=== PATIENT | male | born 1945 | race Caucasian/White ===

== ENCOUNTER → 2021-04-03 | Outpatient (CLI) | payer OTHER ==
[~2021-04-03] MED LIST: ALDACTONE25 MG PO; ALFUZOSIN HCL10 MG PO; CIALIS5 MG PO; COQ-10100 MG PO; COREG; CRESTOR20 MG PO; IRBESARTAN150 MG PO; LO-DOSE ASPIRIN81 M1 PO; LOTREL 2.5-101 EACH PO; LOTREL 5-20 MG1 EACH PO; NIASPAN750 MG PO; NORCO 5-325 TA1 EACH PO; NORVASC 2.5 MG2.5 M1 PO; SOTALOL 120 MG120 M1 PO; SYNJARDY 12.5-1 EAC1 PO; VASCEPA1 GM PO; VITAMIN B125000 MCG PO; VITAMIN D350 MC3 PO; XANAX 0.5 MG0.5 MG PO; ZPAK PO; tikosyn
== END ==
LOC: LAB 09:05
PROVIDERS: ATTEND Student in an Organized Health Care Education/Training Program
DX: Z01.812 Encounter for preprocedural laboratory examination (principal); Z20.822 Contact with and (suspected) exposure to COVID-19

== ENCOUNTER 2021-04-05 06:17 | Inpatient (IN) | payer OTHER ==
[~2021-04-05] VITALS: Ht 180.3 cm; Wt 108.9 kg
[2021-04-05 07:39] LABS: BASOPHILS 0.5 % (0.0-2.0); EOSINOPHILS 3.2 % (0.0-3.0); HEMATOCRIT 43.6 % (42.0-52.0); HEMOGLOBIN 14.9 gm/dL (14.0-18.0); LYMPHOCYTES 30.5 % (24.0-44.0); MCH 31.8 pg (26.0-34.0); MCHC 34.2 g/dL (28.0-37.0); MONOCYTES 8.3 % (1.0-8.0); PLATELET COUNT 172 thou/uL (150-400); POLYS 57.5 % (36.0-66.0); RBC 4.69 mil/uL (4.50-6.00); WBC 5.3 thou/uL (4.0-11.0)
[2021-04-05 07:49] LABS: CALCIUM 9.5 mg/dL (8.5-10.1); CREATININE 1.2 mg/dL (0.7-1.3); POTASSIUM 3.8 mmol/L (3.5-5.1)
[2021-04-05 07:52] LABS: APTT 29.4 Seconds (24.5-32.8); INR 1.05; PROTIME 11.4 Seconds (10.5-12.1)
[2021-04-05 07:55] LABS: ALBUMIN 3.9 g/dL (3.4-5.0); TOTAL BILIRUBIN 0.6 mg/dL (0.2-1.0); TOTAL PROTEIN 6.9 g/dL (6.4-8.2)
[2021-04-05 08:19] VITALS: BP 142/64
[2021-04-05 14:06] VITALS: BP 138/63
[2021-04-05 20:34] VITALS: BP 136/86
--- NOTE | 2021-04-06 02:05 | NUR ---
ASSUMED PT CARE AT 1900.PT WAS OBSERVED LYING ON HIS BED WITH HIS EYES CLOSED AT SHIFT CHANGE.PT REQUESTED FOR PAIN MED,HYDRODONE WAS BROUGHT TO THE PT'S ROOM BUT PT REF THE MEDICATION.PT STATED THAT HE WANTED IV PAIN MED INSTEAD.MEDICATION WAS WASTED AND THIS NURSE GOT IV MORPHINE FOR PT.ON GETTING TO THE PT'S ROOM,THIS NURSE TOLE THE PT THAT HE WILL BE GETTING MORPHINE VIA HIS IV.PT STATED THAT HE DOESN;T WANT THE MORPHINE.HE SIAD"THAT WAS NOT THE MEDICATION THAT I WAS GIVEN EARLIER" THIS NURSE EXPLAINED TO THE PT THAT THE ONLY MED THAT HE HAS REXEIVED WHILE IN THE FLOOR WAS HYDROCODONE..PT APOLOGIZED FOR THE MIX UP AND REQUESTED FOR THE HYDROCODONE.IV MED WAS WASTED AND THIS NURSE WENT IN WITH HYDROCODONE.PT STATED THAT HE CALLED HIS AND SHE EXPLAINED TO HIM THAT HE GOT NAUSEA MED VIA IV AND ORAL MED FOR PAIN.PT APOLOGIZED.SUTURES TO HIS R SIDE OF MOUTH AND FACE DRY AND INTACT.DRIED BLOOD NOTED.NEUMANN CATH IN PLACE,BLOOD TINGED URINE NOTED IN THE BAG.CALL LIGHT WITHIN REACH.
[2021-04-06 05:38] LABS: ALBUMIN 3.4 g/dL (3.4-5.0); CALCIUM 8.3 mg/dL (8.5-10.1); CREATININE 1.1 mg/dL (0.7-1.3); POTASSIUM 3.8 mmol/L (3.5-5.1); TOTAL BILIRUBIN 0.5 mg/dL (0.2-1.0); TOTAL PROTEIN 6.3 g/dL (6.4-8.2)
[2021-04-06 05:47] LABS: HEMATOCRIT 43.2 % (42.0-52.0); HEMOGLOBIN 14.6 gm/dL (14.0-18.0); MCH 31.2 pg (26.0-34.0); MCHC 33.7 g/dL (28.0-37.0); MCV 92.4 fL (80.0-100.0); RBC 4.67 mil/uL (4.50-6.00)
[2021-04-06 08:22] VITALS: BP 151/58
--- NOTE | 2021-04-06 09:19 | O ---
[facility] [place] [address] OPERATIVE REPORT Name: NOAH DESIR Room #: 440-P ADM IN M.R.#: [id number] Admission: 04/05/21 Attend Phys: Dl Moore MD Discharge: Date of : 45 Report #: [id number] THIS REPORT FOR: cc: Karina Long MD,Karina Moore,Dl Braswell MD ~ cc: Karina Long MD, Rod Eisenberg MD, Janak Evans MD, Gal Leyva, Rafaela Murphy, Colin Daigle, Bill Carter MD, Adonis Wilhelm DATE OF SERVICE: 04/05/2021 SURGEON: Dl Moore MD PREOPERATIVE DIAGNOSIS: Squamous cell carcinoma, right maxilla. POSTOPERATIVE DIAGNOSIS: Squamous cell carcinoma, right maxilla. OPERATIONS PERFORMED: 1. Right infrastructure maxillectomy. 2. AlloDerm graft 3 x 7 cm. 3. Facial nerve monitoring x 3-1/2 hours. INDICATIONS: The patient is a 75-year-old gentleman referred by his oral surgeon, Dr. Wilhelm after recent biopsy on a nonhealing ulcerative lesion of the right maxilla, revealed squamous cell carcinoma dated 03/18/2021. The patient had been referred to Dr. Wilhelm from his own dentist, Dr. Colin Daigle with a nonhealing ulcer that was irritating. The patient has undergone a preoperative evaluation including CT scan and PET/CT. There was no evidence of extension to the skull base. PET scan seemed to be confined to the maxilla on the right. There was no abnormal lymphadenopathy. In light of the above, recommendations were made for right maxillectomy with orbital sparing and margin control in the operating room. DESCRIPTION OF PROCEDURE: The patient was brought to the operating room and placed supine on the operating table. After adequate general anesthesia was achieved via endotracheal intubation, he was turned 180 degrees and placed on a Bowman headrest. Neck was extended. As a separate part of the procedure, the bewarket Nerve Integrity Monitor was applied to needle electrodes placed in the orbicularis monse and orbicularis oculi muscles of the right face with ground electrodes in the soft tissue overlying the sternum and contralateral shoulder. Electrode resistance and impedance was measured and found to be acceptable. Threshold and stimulus intensity parameters were set and the patient was monitored for the entirety of the case of approximately 3-1/2 hours in order to locate and protect the facial nerve. Once this was completed, the patient was prepped with Betadine and [address] [address] OPERATIVE REPORT Name: NOAH DESIR Room #: 440-P [place] [facility]#: [id number] Admission: 04/05/21 Attend Phys: Dl Moore MD Discharge: Date of : 45 Report #: [id number] draped in a sterile fashion. A Op-Site was placed to protect the left eye. The right eye was protected with a corneal protector with ointment. The procedure began with examination, intraoral. 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 These teeth were intact. Planned incisions were then marked taking 1.5 cm margins around the mucosa, extending out of the buccal mucosa and then the palate and back behind the maxillary tubercle and then it was chosen to remove tooth #6 as the anterior margin. The soft tissue was then planned, marking the white line on the upper lip with methylene blue. A Cano Salcedo incision was then designed and stepped on the upper lip. The procedure began with a Cano-Salcedo incision. This incision was made through skin and subcutaneous tissue. The angular artery was dissected, clamped between Ligaclips and divided. The lip was then divided in a notched fashion and both labial arteries were identified and tied with a 5-0 Vicryl. Dissection continued into the mucosa of the mouth. Using both sharp dissection and Harmonic hcetan, the soft tissue and muscle were taken down to the face of the maxilla. Using a periosteal elevator, the periosteum was then elevated up to the infraorbital rim. The infraorbital vascular bundle was identified and protected. Dissection then continued posteriorly to the zygoma and posterior maxilla. The pterygoid plates were identified and dissection was continued posteriorly until the lateral pterygoid muscles could be found. This was done for identification of the inferior maxillary artery running between the head of these 2 muscles. The artery was identified in its usual anatomic position, clamped between Ligaclips and divided. The inferior maxillary vein also was identified, clamped between Ligaclips and divided. Once the outlines were adequately identified, the soft tissue margins were taken off the patient with a separate 1-2 mm excision of mucosa as margins. Margins were taken on the buccal surface, lateral and posterior, anterior and then on the palate, posterior and medial. Once these were taken, the patient was given TXA so that the bony cuts could begin. A Harden-Jasvir was then made using chisels into the maxillary sinus. Using Kerrison, this was then elevated, so that I could directly evaluate this mucosa. There did not appear to have any gross tumor on the floor of the sinus. So, dissection was then made along this bone with the Kerrison rongeurs and then switching to a sagittal saw. The tooth #6, the canine was then removed with a standard dental technique to remove the entire tooth. This was sent as a separate specimen for decalcification. The incision in the palate and maxillary alveolus was then made with a sagittal saw going through bone and into the palate. The dissection then continued from anterior to posterior, taking the hard palate down to its posterior junction. The greater palatine artery was identified, clamped between Ligaclips and suture ligated with 4-0 Vicryl. The dissection then continued and the posterior maxillary buttress and posterior wall of the maxillary sinus was then divided with both Kerrison rongeurs and a sagittal saw, taking care to gently remove the bone in the posterior maxillary wall, so that the pterygoid space could be identified, sphenopalatine artery was [address] [address] OPERATIVE REPORT Name: NOAH DESIR Edi Room #: 440-P [place] [facility].#: [id number] Admission: 04/05/21 Attend Phys: Dl Moore MD Discharge: Date of : 45 Report #: [id number] identified, clamped between Ligaclips and divided. There were several veins of the pterygoid plexus also identified and clamped between Ligaclips. Hemostasis was also assured with the Harmonic scalpel and bipolar cautery. The maxilla was rocked until this could be freed. The soft tissue attachments posteriorly of the pterygoid muscles were then taken down and this allowed free delivery of the maxillectomy specimen. This was then examined. There did not appear to be extension into the floor of the maxillary sinus and this was delivered off the field as specimen in formalin. This allowed margins to be taken on the posterior mucosa of the maxillary sinus and the medial mucosa of the maxillary sinus as separate frozen section margins. All of these were oriented. Once this was done, hemostasis was assured. Gelfoam with 1:100,000 epinephrine was placed in the maxillary sinus, superiorly to control any bleeding. There was minimal bleeding. At this point, a 4 mm liseth bur was chosen. The remaining bone superiorly of the maxilla were then smoothed with the liseth bur circumferentially. This extended into the hard palate, which was taken down until the overlapping mucosal edges could be overlapped and then taken posteriorly. Pterygoid plates were left intact. Once complete, then Xeroform was placed into the maxillary sinus followed by cotton ball soaked in Muri-Lube. The sinus was packed for hemostasis and then this was pulled. The Xeroform folded on itself and sutured with 2-0 silk. This will be removed in 5-7 days. At this point, the patient's preoperative maxillary obturator was placed. This fit very nicely and because of no support on the right secondary to the maxillectomy, still rocked a bit. For that reason, a hole was drilled anteriorly in the prosthesis and then a 2-0 silk was used to lasso and tie around tooth #7 to hold this up in position on the contralateral right side. The obturator was secured at this point. Prior to doing this, the AlloDerm graft had been soaking, was then placed into the mouth and then sutured to the mucosal edges posteriorly and then along the buccal mucosa. The piece was a 4 x 7 AlloDerm, 1.04-2.28 mm thickness. This was then customized to the defect and sutured in place to cover the exposed surface. Once this was sutured in place, the skin flap of the Cano Salcedo was returned to anatomic position. The Cano Salcedo was then closed with interrupted 4-0 Vicryl deep dermal sutures and 5-0 nylon on skin. The mucosa in the oral cavity was closed with a 3-0 chromic. Complete closure was achieved in the opposing edges that had not been excised. At the end of the procedure, the obturator was in good position, giving support to the maxillary sinus bolster as well as laterally to the AlloDerm graft. There was minimal bleeding. The mouth was then irrigated and attention was then turned to placement of a Dobbhoff feeding tube through the left naris. This was advanced to 60 cm and then taped to the forehead. Plan will be to use this in the postoperative period. Once margins would have been cleared, the patient was then returned to anesthesia, awakened without difficulty and returned to recovery in good condition. Sponge and needle counts were normal. There were no complications and blood loss was about 100 mL. The patient will be watched [facility] [address] [address] OPERATIVE REPORT Name: KARLEENOAH Edi Room #: [address] [place] [address] [place] M.R.#: [id number] Admission: 04/05/21 Attend Phys: Dl Moore MD Discharge: Date of : 45 Report #: [id number] until awake and stable. Presuming he does well, discharge to home with plans to follow up with me in 2 weeks. Written and verbal discharge instructions and emergency precautions have been given to his . Discharge medications will include clindamycin 300 mg t.i.d. for 10 days, Percocet 7.5/325, 1-2 q. 4-6 hours p.r.n., Phenergan suppository 25 mg 1 per rectum q. 4-6 hours p.r.n., Peridex oral rinse, 20 mL rinse and spit b.i.d. He is instructed on light activity and a soft diet. The patient will have tube feeding initially. <ELECTRONICALLY SIGNED> By: Dl oMore MD 04/06/21 0919 1122 1223 Dl Moore MD /nt
--- NOTE | 2021-04-06 09:37 | NUR ---
A/O X 4, ROOM AIR, ONE ASSIST, L NARE HOBHOFF, 240 CC BOLUS FEEDS q 4 HOURS OF JEVITY 1.5, NEUMANN WILL BE D/C'D TODAY, LR @ 80 MLS/HR, NEUMANN IN PLACE-FRANK URINE NOTED, SUTURES ALONG RIGHT SIDE OF NOSE WITH STERI STRIPS-WARM, AC H ACCU CKECKS, NO INSULIN NEEDED @ BREAKFAST, LEFT WRIST AND RIGHT HAND PIV-DRESSING D/C/I, NORCO GIVEN PRN FOR FACIAL PAIN. DAUGHTER AT BEDSIDE.
[2021-04-06 19:41] VITALS: BP 157/65
[2021-04-07 02:34] VITALS: BP 163/94
[2021-04-07 06:44] LABS: HEMATOCRIT 44.7 % (42.0-52.0); HEMOGLOBIN 15.1 gm/dL (14.0-18.0); MCH 31.6 pg (26.0-34.0); MCHC 33.9 g/dL (28.0-37.0); MCV 93.3 fL (80.0-100.0); RBC 4.79 mil/uL (4.50-6.00); RDW 13.9 % (10.5-14.5); WBC 7.5 thou/uL (4.0-11.0)
[2021-04-07 07:12] LABS: ALBUMIN 3.7 g/dL (3.4-5.0); CALCIUM 8.9 mg/dL (8.5-10.1); CREATININE 1.1 mg/dL (0.7-1.3); POTASSIUM 3.6 mmol/L (3.5-5.1); TOTAL BILIRUBIN 0.7 mg/dL (0.2-1.0); TOTAL PROTEIN 6.9 g/dL (6.4-8.2)
[2021-04-07 07:32] VITALS: BP 123/56
--- NOTE | 2021-04-07 08:56 | NUR ---
PT AMBULATING TO BATHROOM INDEPENDENTLY AND IS TOLERATING WELL. LORTAB PROVIDING PAIN RELIEF. RESTING COMFORTABLY. NO NEEDS VOICED. CALL LIGHT WITHIN REACH. FREQUENT OBSERVATION.
[2021-04-07 11:55] VITALS: BP 125/58
[2021-04-07 15:39] VITALS: BP 137/76
--- NOTE | 2021-04-07 18:30 | NUR ---
PT ASSESSED AT START OF SHIFT. PT UP IN THE RECLINER ENTIRE SHIFT. FACIAL SUTURES INTACT W/ SOME FACIAL AND LIP SWELLING. ICE PACK USED SOME. DR. TIPTON IN AND DISCUSSED PLAN OF CARE W/ PT. HE WATCHED PT TAKE SIPS OF WATER AND STATED HE COULD DRINK CLEAR LIQUIDS. PLAN FOR SPEECH TO DO VIDEO IN AM TO CHECK ON POSSIBLE ASPIRATION. PT NOTED TO BE HAVING INCREASE ORAL SALIVA SO INSTRUCTED PT TO STOP TAKING FLUIDS UNTIL VIDEO DONE TOMORROW EXCEPT FOR TO TAKE MEDS.HE AGREED. PT HAVING SM AMTS OF VERY SOFT STOOL SEVERAL TIMES THIS SHIFT. POSSIBLE DC TOMORROW. AT BEDSIDE.
[2021-04-07 22:02] VITALS: BP 145/74
[2021-04-08 05:29] LABS: HEMATOCRIT 45.3 % (42.0-52.0); HEMOGLOBIN 15.2 gm/dL (14.0-18.0); MCH 31.2 pg (26.0-34.0); MCHC 33.6 g/dL (28.0-37.0); MCV 92.7 fL (80.0-100.0); RBC 4.88 mil/uL (4.50-6.00); RDW 14.1 % (10.5-14.5); WBC 6.8 thou/uL (4.0-11.0)
[2021-04-08 05:42] LABS: ALBUMIN 3.8 g/dL (3.4-5.0); CALCIUM 9.7 mg/dL (8.5-10.1); POTASSIUM 3.8 mmol/L (3.5-5.1); TOTAL BILIRUBIN 0.7 mg/dL (0.2-1.0); TOTAL PROTEIN 7.2 g/dL (6.4-8.2)
[2021-04-08 08:38] VITALS: BP 157/74
--- NOTE | 2021-04-08 08:38 | NUR ---
PT AMBULATING INDEPENDENTLY AND IS TOLERATING WELL. DENIES PAIN. TUBE FEEDING TURNED OFF AT MIDNIGHT. PT NOT TOLERATING AND WAS HAVING CONSTANT DIARRHA. PLAN FOR BARIUM SWALLOW 04/08 THEN POSSIBLE DISCHARGE HOME. FREQUENT OBSERVATION.
--- NOTE | 2021-04-08 14:09 | NUR ---
While in hospital, use glucerna shakes 120ml gravity drip every 6hr until diarrhea resolves, then increase to 240ml every 6hr. Pt may also drink glucerna shakes by mouth as tolerated. [facility] to evaluate home needs for enteral nutrition. Per Dr Moore, keep dobhoff until 04/11 then possibly stop enteral feeds if pt can take more than 2000 calories by mouth.
--- NOTE | 2021-04-08 14:13 | NUR ---
RD consult received. Pt with hx quadraplegia and past stage IV ischial wound noted to be resolving per wound care. Visit during lunch, can feed self but needs assistance with meal set up. Good appetite. Likes to drink ensure henry so will order 1x per day. Otherwise presents low nutrition risk. Pt hoping to be discharged soon
[2021-04-08 15:26] LABS: URINE BILIRUBIN NEGATIVE (Negative); URINE BLOOD 1+ (Negative); URINE CLARITY CLEAR; URINE COLOR YELLOW; URINE GLUCOSE-RANDOM* 3+ (Negative); URINE KETONES NEGATIVE (Negative); URINE LEUKOCYTES-REFLEX NEGATIVE (Negative); URINE NITRITE-REFLEX NEGATIVE (Negative); URINE PROTEIN (DIPSTICK) NEGATIVE (Negative); URINE SPECIFIC GRAVITY <= 1.005 (1.005-1.035); URINE UROBILINOGEN 0.2 E.U./dl (0.2-1.0)
[2021-04-08 15:40] LABS: SQUAMOUS 0-3 Few /LPF (0-3)
[2021-04-08 15:41] LABS: BACTERIA-REFLEX None Seen /HPF (None Seen); CASTS None Seen /LPF (None Seen); CRYSTALS None Seen /LPF (None Seen); URINE RBC 3-10 Few /HPF (NONE SEEN); URINE WBC-REFLEX None Seen /HPF (0-5)
--- NOTE | 2021-04-08 16:30 | NUR ---
PT ADMITTED RELATED TO MAXILLECTOMY. CM REVIEWED CHART AND SPOKE WITH CARE TEAM. CM MET WITH ENT DR. COSME AND STITCH CLEANER THIS DAY. DR. COSME INDICATED THAT HE WANTED PT TO HAVE NOC O2 AND A DOBBHOFF UPON DC. PT HAS DOBBHOFF IN PLACE NOW AND IS GETTING GLUCERNA NOW. PT AND STITCH CLEANER INDICATED THAT DOC THINK THAT IS PT IS PROGRESSING WELL THAT DOBHOFF MAY BE DISCONTINUED THURSDAY. CM CALLED LIZ IN ENTERAL DEPARTMENT AT [facility] AND SHE INDICATED THAT IT MAY NO BE APPROPRIAT TO INITIATE PT WITH SUPPLIES FOR SUCH A SHORT TIME. PT IS ON PUREED DIET AFTER VIDEO SWALLOW WELL. CM SPOKE WITH PT'S NURSE, WITH PT, AND SPOUSE AND THEY ARE AWARE. CM TO INFORM DR. COSME AND PROCEED INDICATED. DR. COSME HAD NO DESTATE STUDY DONE. PT HAS BIPAP FOR HOME USE AND CAN'T WEAR IT FOR THE TIME BEING. PT WAS AGREEABLE WITH REFERRAL BEING SENT TO [facility] TO SEE ABOUT GETTING PT NOC O2 FOR HOME USE. CM FAXED REFERRAL. CM FOLLOWING REGARDING DC PLANNING.
--- NOTE | 2021-04-08 18:20 | NUR ---
patient is A&Ox4 and makes needs known. Patient is having frequent "cottage cheese" yellow stools; patient states they did not start until after tube feedings. Patient c/o pain at lower abd & prostate area. Bladder scanned, difficult to obtain ml reading. Hospitalist consulted & ordered ventura. Ventura inserted at 1500. PO intake pureed after barium swallow, tube feeding changed to "one can of osmolite and add one can of water at 40ml/hr". FSBS stable. Denies pain other than prostate discomfort. Staying 1 extra night voicing that he wants to go home with ventura in place
[2021-04-08 20:45] VITALS: BP 133/76
== END 2021-04-09 | disposition home or self-care (01) | DRG 145 ==
LOC: OR → 4S 06:17 → TBA 06:17 → OR 09:05 → EDSTATUS 12:07 → 4S 13:30
PROVIDERS: Hospitalist; ADMIT Otolaryngology Plastic Surgery within the Head & Neck; ATTEND Otolaryngology Plastic Surgery within the Head & Neck
PROC: F01 Physical Rehabilitation and Diagnostic Audiology, Rehabilitation, Motor and/or Nerve Function Assessment (ICD-10-PCS; principal; 2021-04-05)
PROC: 0NBR0ZZ Excision of Maxilla, Open Approach (ICD-10-PCS; principal; 2021-04-05)
PROC: 0NR Head and Facial Bones, Replacement (ICD-10-PCS; principal; 2021-04-05)
DX: C31.0 Malignant neoplasm of maxillary sinus (principal); G47.33 Obstructive sleep apnea (adult) (pediatric); I10 Essential (primary) hypertension; E78.5 Hyperlipidemia, unspecified; E11.9 Type 2 diabetes mellitus without complications; F41.9 Anxiety disorder, unspecified; R33.9 Retention of urine, unspecified; N34.2 Other urethritis; Z88.6 Allergy status to analgesic agent; Z82.49 Family history of ischemic heart disease and other diseases of the circulatory system; Z95.5 Presence of coronary angioplasty implant and graft
CPT/HCPCS: 10102; 50010; 50101; 50386; 50403; 50951; 51412; 52190; 52220; 52225; 56524; 56526; 56528; 56668; 56760; 57006; 57149; 62110; 62900; 65090; 65130; 70005